=== PATIENT | female | born 1965 | race Caucasian/White ===

== ENCOUNTER 2021-02-12 08:11 | Day surgery (SDC) | payer OTHER ==
[~2021-02-12 08:11] MED LIST: NEURONTIN300 MG; ORPH100T PO; PRILOSEC OTC20 MG; SYNTHROID50 MCG; ZANTAC300 MG
== END 2021-02-12 16:40 | disposition home or self-care (01) ==
LOC: AMB-ENDOS 08:11
PROVIDERS: ATTEND Colon & Rectal Surgery
DX: K62.89 Other specified diseases of anus and rectum (principal); K64.2 Third degree hemorrhoids

== ENCOUNTER 2024-04-10 12:44 | Emergency (ER) | payer OTHER ==
[~2024-04-10] VITALS: Ht 157.5 cm; Wt 65.8 kg
[2024-04-10] MEDS ORDERED: 0.9 % SODIUM CHLORIDE 1,000 ML IV STA (13:23)
[2024-04-10] MEDS ORDERED: ONDANSETRON HCL 2 MG/ML VIAL IV STA (13:25)
[2024-04-10] MEDS ORDERED: METOCLOPRAMIDE HCL 10 MG in 0.9 % SODIUM CHLORIDE 50 ML IV ONE (13:30)
[2024-04-10] MEDS ORDERED: FAMOtidine 10 MG/ML (4ML VIAL) IV SCH (13:30)
[2024-04-10] MEDS ORDERED: FAMOTIDINE/PF 20 MG/2 ML VIAL ONE (13:54)
[2024-04-10] MEDS ORDERED: ONDANSETRON HCL 2 MG/ML VIAL ONE (13:54)
[2024-04-10 14:44] LABS: PH,URINE 7.5 (5.0-8.0); URINE APPEARANCE Clear; URINE BILIRRUBIN Negative (NEGATIVE); URINE BLOOD Negative; URINE COLOR Yellow; URINE GLUCOSE Negative (NEGATIVE); URINE KETONE Negative (NEGATIVE); URINE LEUKOCYTE Negative; URINE NITRATE Negative; URINE PROTEIN Negative (NEGATIVE); URINE UROBILINOGEN 0.2 E.U./dl
[2024-04-10 14:45] LABS: HEMATOCRIT 38.3 % (36.0-45.00); MEAN CELL VOLUME 91.6 fL (80.00-100.00); MEAN CORPUSCULAR HGB CONC 33.8 g/dl (32.0-36.0); PLATELET COUNT 284 K/uL (150-450); RED BLOOD COUNT 4.18 M/uL (4.00-6.00)
[2024-04-10 14:48] LABS: URINE BACTERIA 51.3 uL (0.0-1933); URINE RBC 14.1 uL (0.0-20.8)
[2024-04-10 14:57] LABS: URINE WBC 0.9 uL (0.0-23.2)
[2024-04-10 15:06] LABS: ALBUMIN 3.8 gm/dL (3.4-5.0); ALKALINE PHOSPHATASE 99 U/L (50-136); ALT/SGPT 53 U/L (12-78); AMYLASE 50 U/L (25-115); ANION GAP 9 (10.0-20.0); AST/SGOT 28 U/L (15-37); BILIRUBIN TOTAL 0.39 mg/dL (0.3-1.2); BILIRUBIN,CONJUGATED < 0.10 mg/dL (0.0-0.2); BILIRUBIN,UNCONJUGATED 0.29 mg/dL (0.0-0.6); BLOOD UREA NITROGEN 7 mg/dL (7-18); BUN CREA RATIO 11 (7.0-25.0); CALCIUM 9.6 mg/dL (8.5-10.1); CARBON DIOXIDE 33 mEq/L (21-32); CHLORIDE 106 mmol/L (98-107); CREATININE SERUM 0.64 mg/dL (0.55-1.02); GFR 95.64; GLUCOSE FASTING 101 mg/dL (65-100); LIPASE 26 U/L (13-75); OSMOLALITY SERUM 285 MOSM/KG (275-295); POTASSIUM 3.51 mEq/L (3.5-5.1); SODIUM 144 mmol/L (136-145); TOTAL PROTEIN 8.2 gm/dL (6.4-8.2)
[2024-04-10] MEDS ORDERED: LACTULOSE 20 G/30 ML BLIST.PACK PO STA (16:01)
[2024-04-10] MEDS ORDERED: MAGNESIUM HYDROXIDE 30 ML BLIST.PACK PO STA (16:01)
[2024-04-10] MEDS ORDERED: LACTULOSE 20 G/30 ML BLIST.PACK ONE (16:07)
[2024-04-10] MEDS ORDERED: MAGNESIUM HYDROXIDE 30 ML BLIST.PACK PO ONE (16:08)
== END 2024-04-10 16:13 | disposition home or self-care (01) ==
LOC: ER 12:47
PROVIDERS: General Practice
DX: K59.00 Constipation, unspecified (principal); R10.9 Unspecified abdominal pain; I10 Essential (primary) hypertension; Z88.6 Allergy status to analgesic agent; Z88.8 Allergy status to other drugs, medicaments and biological substances; Z91.013 Allergy to seafood
CPT/HCPCS: 36415; 74240; 96365; 96366; 99283; J2405; J2765; J7030

== ENCOUNTER 2025-01-16 19:13 | Emergency (ER) | payer OTHER ==
[~2025-01-16] VITALS: Ht 157.5 cm; Wt 61.2 kg
[2025-01-16] MEDS ORDERED: ONDANSETRON HCL 2 MG/ML VIAL IV ONE (20:15)
[2025-01-16] MEDS ORDERED: 0.9 % SODIUM CHLORIDE 1,000 ML IV SCH (20:15)
[2025-01-16] MEDS ORDERED: FAMOTIDINE/PF 20 MG/2 ML VIAL IV ONE (20:15)
[2025-01-16] MEDS ORDERED: KETOROLAC TROMETHAMINE 30 MG VIAL IV ONE (20:15)
[2025-01-16] MEDS ORDERED: KETOROLAC TROMETHAMINE 30 MG VIAL ONE (20:20)
[2025-01-16] MEDS ORDERED: ONDANSETRON HCL 2 MG/ML VIAL ONE (20:20)
[2025-01-16] MEDS ORDERED: FAMOTIDINE/PF 20 MG/2 ML VIAL ONE (20:20)
[2025-01-16 20:47] LABS: BASO % 0.4 % (0.1-1.2); EOS # 0.10 (0.04-0.54); EOS % 1.8 % (0.7-7.0); ERYTHROCYTE SEDIMENTATION RATE 20 mm/hr (0-30); LYMPH # 2.11 (1.18-3.74); LYMPH % 38.8 % (19.3-53.1); MEAN PLATELET VOLUME 9.80 fl (9.4-12.4); MONO # 0.39 (0.24-0.82); MONO % 7.2 % (4.7-12.5); NEUT # 2.81 (1.56-6.13); NEUT % 51.6 % (34.0-71.1); RED CELL DISTRIBUTION WIDTH 13.7 % (11.6-14.4)
[2025-01-16 21:03] LABS: INR 1.13
[2025-01-16] MEDS ORDERED: BARIUM SULFATE 450 ML ORAL.SUSP PO ONE (21:04)
[2025-01-16 21:07] LABS: ALT/SGPT 40 U/L (12-78); AST/SGOT 20 U/L (15-37); BILIRUBIN TOTAL 0.30 mg/dL (0.3-1.2); BUN CREA RATIO 19 (7.0-25.0); CREATININE SERUM 0.62 mg/dL (0.55-1.02); GFR 98.86; GLOBULINA 4.0 G/DL (2.4-3.5); GLUCOSE FASTING 87 mg/dL (65-100); OSMOLALITY SERUM 286 MOSM/KG (275-295)
[2025-01-16 21:18] LABS: URINE APPEARANCE Clear; URINE BILIRRUBIN Negative (NEGATIVE); URINE BLOOD Negative; URINE COLOR Yellow; URINE GLUCOSE Negative (NEGATIVE); URINE KETONE Negative (NEGATIVE); URINE LEUKOCYTE Negative; URINE NITRATE Negative; URINE PROTEIN Negative (NEGATIVE); URINE UROBILINOGEN 0.2 E.U./dl
[2025-01-16 21:22] LABS: URINE BACTERIA 62.3 uL (0.0-1933); URINE EPITHELIAL CELLS 4.1 uL (0.0-38.8); URINE RBC 12.7 uL (0.0-20.8)
[2025-01-16 21:28] LABS: URINE CAST 0.00 uL (0.0-1.40); URINE WBC 1.6 uL (0.0-23.2)
[2025-01-16] MEDS ORDERED: TRAMADOL HCL 50 MG TABLET PO ONE (21:30)
[2025-01-17] MEDS ORDERED: METOCLOPRAMIDE HCL 5 MG/ML VIAL IM STA (02:39)
[2025-01-17] MEDS ORDERED: HYOSCYAMINE SULFATE 0.125 MG TAB.SUBL SL ONE (02:45)
[2025-01-17] MEDS ORDERED: HYOSCYAMINE SULFATE 0.125 MG TAB.SUBL ONE (03:33)
[2025-01-17] MEDS ORDERED: METOCLOPRAMIDE HCL 5 MG/ML VIAL ONE (03:33)
== END 2025-01-17 04:48 ==
LOC: ER 19:14
PROVIDERS: Student in an Organized Health Care Education/Training Program
DX: R10.84 Generalized abdominal pain (principal); Z88.8 Allergy status to other drugs, medicaments and biological substances; Z88.6 Allergy status to analgesic agent; Z88.0 Allergy status to penicillin; Z91.013 Allergy to seafood
CPT/HCPCS: 36415; 74177; 96365; 96366; 99283; J1885; J2405; J2765; J3490; J7030; Q9965

== ENCOUNTER → 2025-01-27 | Emergency (ER) | payer OTHER ==
[~2025-01-27] VITALS: Ht 157.5 cm; Wt 61.2 kg
[~2025-01-27] MED LIST changes: +0.9 % SODIUM CHLORIDE 1,000 ML IV SCH; +FAMOTIDINE/PF 20 MG/2 ML VIAL IV ONE; +METOCLOPRAMIDE HCL 5 MG/ML VIAL IV ONE; +PLAVIX75 MG
[2025-01-27 23:32] LABS: BASO % 0.9 % (0.1-1.2); EOS # 0.11 (0.04-0.54); EOS % 1.9 % (0.7-7.0); LYMPH # 2.44 (1.18-3.74); LYMPH % 42.4 % (19.3-53.1); MEAN PLATELET VOLUME 10.10 fl (9.4-12.4); MONO # 0.45 (0.24-0.82); MONO % 7.8 % (4.7-12.5); NEUT # 2.70 (1.56-6.13); NEUT % 46.8 % (34.0-71.1); RED CELL DISTRIBUTION WIDTH 13.4 % (11.6-14.4)
[2025-01-27 23:37] LABS: INR 1.14
[2025-01-27 23:43] LABS: ALT/SGPT 34 U/L (12-78); AST/SGOT 20 U/L (15-37); BILIRUBIN TOTAL 0.24 mg/dL (0.3-1.2); BUN CREA RATIO 17 (7.0-25.0); CREATININE SERUM 0.82 mg/dL (0.55-1.02); GFR 71.60; GLOBULINA 4.0 G/DL (2.4-3.5); GLUCOSE FASTING 105 mg/dL (65-100); OSMOLALITY SERUM 295 MOSM/KG (275-295)
[2025-01-27 23:54] LABS: ERYTHROCYTE SEDIMENTATION RATE 31 mm/hr (0-30)
[2025-01-28 00:28] LABS: URINE APPEARANCE Clear; URINE BILIRRUBIN Negative (NEGATIVE); URINE BLOOD Trace; URINE COLOR Yellow; URINE GLUCOSE Negative (NEGATIVE); URINE KETONE Negative (NEGATIVE); URINE LEUKOCYTE Negative; URINE NITRATE Negative; URINE PROTEIN Negative (NEGATIVE); URINE UROBILINOGEN 0.2 E.U./dl
[2025-01-28 00:32] LABS: URINE BACTERIA 701.9 uL (0.0-1933); URINE EPITHELIAL CELLS 18.4 uL (0.0-38.8); URINE RBC 13.3 uL (0.0-20.8); URINE WBC 27.5 uL (0.0-23.2)
[2025-01-28 00:33] LABS: URINE CAST 0.87 uL (0.0-1.40)
== END | disposition left against medical advice (07) ==
LOC: ER 19:46
PROVIDERS: Student in an Organized Health Care Education/Training Program
DX: R10.9 Unspecified abdominal pain (principal); Z88.0 Allergy status to penicillin; Z88.6 Allergy status to analgesic agent; Z91.013 Allergy to seafood
CPT/HCPCS: 36415; 96365; 99282; J7030